=== PATIENT | male | born 1980 ===

== ENCOUNTER 2023-08-12 10:55 | Outpatient (CLI) | payer BC, SELFPAY | END 2023-08-12 10:56 | disposition home or self-care (01) | LOC: LKVREF 11:10 | PROVIDERS: PCP Family Medicine; Visit Provider Family Medicine | DX: Z00.00 Encounter for general adult medical examination without abnormal findings (principal); Z13.6 Encounter for screening for cardiovascular disorders | CPT/HCPCS: 80061 ==